=== PATIENT | female | born 1950 | race Caucasian/White ===

== ENCOUNTER 2016-10-02 10:35 | Day surgery (SDC) | payer BC ==
[~2016-10-02] VITALS: Ht 170.2 cm; Wt 78.0 kg
[~2016-10-02 10:35] MED LIST: Aldactone PO; Ativan PO; Benadryl PO; Coreg PO; Coumadin,Jantoven PO; EFFEXOR XR150 MG PO; EFFEXOR75 MG PO; ELAVIL25 MG PO; Feosol PO; GLUCOPHAGE500 MG PO; Glucophage PO; LAMICTAL100 MG PO; LASIX20 MG PO; LaMICtal PO; MAGOX 400400 MG PO; Omega III EPA + DHA PO; POTASSIUM CHLO10 ME3 PO; PRILOSEC40 MG PO; PROAIR HFA8.5 GM IH; PROTONIX40 MG PO; PROVENTIL,2.5 MG/3 M IH; Proventil,Ventolin H IH; Requip PO; Robaxin PO; SEROQUEL XR150 MG PO; SEROQUEL XR300 MG PO; SOTALOL120 MG PO; SOTALOL80 MG PO; SPIRIVA1 INHALATI IH; Symbicort 160-4.5 mc IH; TAPAZOLE10 MG PO; Tylenol Extra Streng PO; VITAMIN D1000 INTUN PO; VOLTAREN 1% GE100 GM TP; Vicodin,Norco 5/325 PO; Vitamin D PO; XANAX0.25 MG PO; ZANAFLEX4 MG PO; ZESTRIL5 MG PO; Zestril,Prinivil PO
[2016-10-02 12:17] VITALS: BP 186/84
[2016-10-02 13:06] LABS: POINT-OF-CARE METER ID UU14174212
[2016-10-02 16:37] LABS: POINT-OF-CARE METER ID UU13113675
[2016-10-02 17:30] VITALS: BP 165/71
[2016-10-02 20:30] VITALS: BP 180/86
[2016-10-02 21:11] VITALS: BP 160/90
== END 2016-10-02 21:20 | disposition home or self-care (01) ==
LOC: SDC 10:35
PROVIDERS: Surgery
DX: K43.9 Ventral hernia without obstruction or gangrene (principal); K46.9 Unspecified abdominal hernia without obstruction or gangrene; Z98.84 Bariatric surgery status; I10 Essential (primary) hypertension; E11.9 Type 2 diabetes mellitus without complications; J45.909 Unspecified asthma, uncomplicated; J44.9 Chronic obstructive pulmonary disease, unspecified; K21.9 Gastro-esophageal reflux disease without esophagitis; Z79.51 Long term (current) use of inhaled steroids
CPT/HCPCS: 82365 90; 82948; 88305; J0330; J1170; J1644; J2250; J2405; J2710; J3010; S0020